=== PATIENT | male | born 1995 | race Caucasian/White ===

== ENCOUNTER 2017-06-01 07:38 | Emergency (ER) | payer SELFPAY ==
[2017-06-01 07:55] VITALS: BP 130/71
--- NOTE | 2017-06-01 08:21 | DR.ABDMALE ---
HPI - Time seen Time seen: 08:20 - PCP Primary Care Physician: CHOLO - HPI comment HPI Comment: NO FEVER. HAVE RASH RT GROIN AREA, SUPRAPUBIC AREA AND LEFT MIDDLE FINGER. BOBBY INFECTED FOR SEVERAL DAYS. NO DRAINAGE. NAUSEATED BUT NOT VOMITING. - Complaint Chief Complaint Doctors Comments: ABDOMINAL PAIN, DIARRHEA FOR FEW DAYS. EXPOSE TO STD. Chief Complaint:: PT STATES " I WAS TOLD BY A GIRL THAT I NEED TO BE CHECKED AND I WAS EMBARESSED ".. I HAVE BEEN SICK NOT KEEPING ANYTHING DOWN, AND MY ORGANS HURT.... Self Treatment fo Chief Complaint: PT CALLED THE HEALTH DEPT AND HE CANT BE SEEN FOR 3 WEEKS ,, PT C/O INFECTION TO HIS RIGHT INDEX FINGER.. - Reviewed Nurses Notes Review: Yes - Mode of arrival Mode of Arrival: Ambulatory - Timing Onset of Chief Complaint: 06/01/17 Came on: Suddenly - Duration Duration: Constant Duration: Days - Location Location: Diffuse - Severity Severity: Moderate - Quality Quality: Cramping - Context Onset: Suddenly History of: None - Modifying factors Worsening Factors: Nothing - Associated signs and symptoms Associated Signs and Symptoms: Nausea, Diarrhea PMH - PMH Past Medical History: No Past Surgical History: No - Family History History of Family Medical Conditions: No Family Medical History: Diabetes Mellitus, Hypertension - Social History Does patient currently use any type of tobacco product: No Have you used tobacco products in the last 12 months: No Type of Tobacco Use: None Does any household member use tobacco: No Alcohol Use: None Do you use any recreational Drugs:: Yes (THC) Lives With: Family Lives Where: Home - infectious screening In the last 2 months have you had wt loss of >10#?: NO Have you had fever, night sweats or hemotysis?: No Have you traveled outside the country in the last 6 months?: No Isolation: Standard ROS - Review of Systems Constitutional: Weakness, Fatigue, Loss of Appetite. negative: Chills, Fever Eyes: negative: Eye Pain, Discharge ENTM: negative: Ear Pain, Nose Discharge, Nose Congestion, Throat Pain Respiratoy: No Symptoms Reported. negative: Productive Cough, Non-Productive Cough, Short of Breath, Wheezing, Hemoptysis Cardiovascular: No Symptoms Reported. negative: Chest Pain Gastrointestinal/Abdominal: Abdominal Pain, Diarrhea, Nausea. negative: Vomiting Genitourinary: No Symptoms Reported. negative: Dysuria, Frequency, Hematuria Neurological: Weakness, Dizziness. negative: Headache Musculoskeletal: Muscle Pain Integumentary: Lesions (lt middle finger infection), Rash (lower abdomen and rt groin area.) Hematologic/Lymphatic: No Symptoms Reported Endocrine: No Symptoms Reported All Other Systems: Reviewed and Negative PE - Vital Signs Vital Signs: Temp Pulse Resp BP Pulse Ox 06/01/17 07:48 97.5 F L 107 H 18 130/71 97 12/18/14 15:38 112/67 - General Limitations: No Limitations General Appearance: Alert - Head Head Exam: Normal Inspection - Eyes Eye exam: Normal Appearance - ENT ENT Exam: Normal External Ear Exam - Chest Chest Inspection: Symmetric Chest Wall Rise - Respiratory Respiratory Exam: Normal Lung Sounds Bilat Respiratory Exam: Bilateral Clear to Auscultation - Cardiovascular Cardiovascular Exam: Regular Rate, Normal Rhythm, Normal Heart Sounds - Abdominal Exam Abdominal Exam: Normal Bowel Sounds, Soft, Tenderness Abdominal Tenderness: Diffuse, Moderate - Rectal Rectal Exam: Deferred - Back Back Exam: Normal Inspection - Extremeties Extremities Exam: Normal Inspection - Exam: Male: negative: Testicular Tenderness, Urethral Discharge, Scrotal Swelling, Phimosis, Paraphimosis, Penile Swelling, Lesions - Neurologic Neurological Exam: Alert, Oriented X3 - Psychiatric Psychiatric Exam: Normal Affect, Normal Mood - Skin Skin Exam: Rash, Erythema (lt middle finger infection. no drainage.) MDM - Differential Diagnosis Differential Diagnosis: Gastritus/PUD (STD EXPOSURE.), Gastroenteritis, Pancreatitis, Urinary tract infection, Urolithiasis Course - Treatment Treatment: SEE ORDERS. - Education/Counseling Education/Counseling: Patient, Education Educated On: Diagnosis, Needs for Follow Up ROR - Labs Reviewed Laboratory Results Reviewed?: Yes Result Diagrams: 06/01/17 08:35 06/01/17 08:35 Laboratory: WBC 8.6 X10^3/uL (3.6-10.0) 06/01/17 08:35 RBC 5.71 X10^6/uL (4.7-6.0) 06/01/17 08:35 Hgb 17.6 g/dL (13.5-18.0) 06/01/17 08:35 Hct 49.9 % (42.0-54.0) 06/01/17 08:35 MCV 87.5 fL (80.0-100.0) 06/01/17 08:35 MCH 30.9 pg (27.0-34.0) 06/01/17 08:35 MCHC 35.4 g/dL (33.0-35.0) H 06/01/17 08:35 RDW 13.1 % (11.6-16.5) 06/01/17 08:35 Plt Count 385 X10^3/uL (150.0-450.0) 06/01/17 08:35 Plt Count Comment Adequate (ADEQUATE) 06/01/17 08:35 MPV 8.0 fL (7.4-11.0) 06/01/17 08:35 Neut % 57.9 % (42.0-75.0) 06/01/17 08:35 Lymph % 30.8 % (21.0-51.0) 06/01/17 08:35 [place] % 9.3 % (0.0-13.0) 06/01/17 08:35 Eos % 1.2 % (0.9-2.9) 06/01/17 08:35 Baso % 0.8 % (0.2-1.0) 06/01/17 08:35 Neut # 5.0 x10^3/uL (2.2-4.8) H 06/01/17 08:35 Lymph # 2.6 X10^3/uL (1.3-2.9) 06/01/17 08:35 [place] # 0.8 x10^3/uL (0.3-0.8) 06/01/17 08:35 Eos # 0.1 x10^3/uL (0.0-0.2) 06/01/17 08:35 Baso # 0.1 X10^3/uL (0.0-0.1) 06/01/17 08:35 Absolute Nucleated RBC 0.0 /100WBC 06/01/17 08:35 Plt Morphology Comment Normal (NORMAL) 06/01/17 08:35 RBC Morphology Normal (NORMAL) 06/01/17 08:35 Sodium 140 mmol/L (136-145) 06/01/17 08:35 Corrected Sodium TNP 06/01/17 08:35 Potassium 3.1 mmol/L (3.5-5.1) L 06/01/17 08:35 Chloride 100 mmol/L (98-107) 06/01/17 08:35 Carbon Dioxide 29.7 mmol/L (21-32) 06/01/17 08:35 BUN 17 mg/dL (7-18) 06/01/17 08:35 Creatinine 1.31 mg/dL (0.70-1.30) H 06/01/17 08:35 Est GFR (MDRD) Af Amer > 60 (>60) 06/01/17 08:35 Est GFR (MDRD) Non-Af > 60 (>60) 06/01/17 08:35 Glucose 77 mg/dL (65-99) 06/01/17 08:35 Calcium 9.5 mg/dL (8.5-10.1) 06/01/17 08:35 Corrected Calcium TNP 06/01/17 08:35 Total Bilirubin 0.70 mg/dL (0.2-1.0) 06/01/17 08:35 AST 16 Units/L (15-37) 06/01/17 08:35 ALT 19 Units/L (12-78) 06/01/17 08:35 Alkaline Phosphatase 68 Units/L (46-116) 06/01/17 08:35 Total Protein 9.2 g/dL (6.4-8.2) H 06/01/17 08:35 Albumin 4.9 g/dL (3.4-5.0) 06/01/17 08:35 Globulin 4.3 g/dL (2.5-4.5) 06/01/17 08:35 Albumin/Globulin Ratio 1.1 Ratio (1.1-2.1) 06/01/17 08:35 Amylase 74 Units/L (25-115) 06/01/17 08:35 Lipase 242 Units/L (73-393) 06/01/17 08:35 Specimen Type Clean catch urine 06/01/17 09:11 Urine Color Yellow (YELLOW) 06/01/17 09:11 Urine Appearance Clear (CLEAR) 06/01/17 09:11 Urine pH 6.0 (5.0 - 8.0) 06/01/17 09:11 Ur Specific [place] 1.020 (1.000-1.030) 06/01/17 09:11 Urine Protein 2+ (NEGATIVE) 06/01/17 09:11 Urine Glucose (UA) Negative (NEGATIVE) 06/01/17 09:11 Urine Ketones 1+ (NEGATIVE) 06/01/17 09:11 Urine Occult Blood 3+ (NEGATIVE) 06/01/17 09:11 Urine Nitrite Negative (NEGATIVE) 06/01/17 09:11 Urine Bilirubin 1+ (NEGATIVE) 06/01/17 09:11 Urine Urobilinogen 2+ (NORMAL) 06/01/17 09:11 Ur Leukocyte Esterase 2+ (NEGATIVE) 06/01/17 09:11 Urine RBC Cancelled 06/01/17 09:11 Urine WBC Cancelled 06/01/17 09:11 Ur Squamous Epith Cells Cancelled 06/01/17 09:11 Ur Transition Epith Cell Cancelled 06/01/17 09:11 Ur Renal Epithelial Cell Cancelled 06/01/17 09:11 Calcium Oxalate Crystal Cancelled 06/01/17 09:11 Cystine Crystals Cancelled 06/01/17 09:11 Uric Acid Crystals Cancelled 06/01/17 09:11 Triple Phos Crystals Cancelled 06/01/17 09:11 Tyrosine Crystals Cancelled 06/01/17 09:11 Other Crystals Cancelled 06/01/17 09:11 Amorphous Sediment Cancelled 06/01/17 09:11 Urine Bacteria Cancelled 06/01/17 09:11 Hyaline Casts Cancelled 06/01/17 09:11 Granular Casts Cancelled 06/01/17 09:11 Fine Granular Casts Cancelled 06/01/17 09:11 Coarse Granular Casts Cancelled 06/01/17 09:11 WBC Casts Cancelled 06/01/17 09:11 Other Casts Cancelled 06/01/17 09:11 Urine Mucus Cancelled 06/01/17 09:11 Urine Trichomonas Cancelled 06/01/17 09:11 Urine Yeast Cancelled 06/01/17 09:11 Urine Sperm Cancelled 06/01/17 09:11 Ur Culture Indicated? Cancelled 06/01/17 09:11 Urinalysis Comment Dip only ordered 06/01/17 09:11 Ur C. trach DNA (PCR) Detected (NOT DETECT) A 06/01/17 08:30 U N.gonorrhoeae DNA PCR Not detected (NOT DETECT) 06/01/17 08:30 - XRAY XRAY Interpreted by: Radiologist (REPORT DISCUSS WITH PATIENT.) - Diagnosis Discharge Problem: STD exposure, Finger infection Abdominal pain Qualifiers: Abdominal location: generalized Qualified Code(s): R10.84 - Generalized abdominal pain - Discharge Plan Disposition: 01 HOME, SELF-CARE Condition: Stable Prescriptions: Diphenoxylate/Atropine [Lomotil] 1 tab PO TID PRN #15 tab PRN Reason: Doxycycline Hyclate 100 mg PO BID #20 tablet. Metronidazole [Flagyl Tab 500 mg] 500 mg PO TID #21 tab - Follow ups/Referrals Follow ups/Referrals: [facility],None [Primary Care Provider] - 3 days - Instructions Instructions: Viral Gastroenteritis, Adult, [id number], Abdominal Pain, Adult , [id number], Chlamydia Test Additional Instructions: RETURN TO ED
[2017-06-01 08:49] LABS: BASOPHILS # (AUTO) 0.1 X10^3/uL (0.0-0.1); BASOPHILS % (AUTO) 0.8 % (0.2-1.0); EOSINOPHILS # (AUTO) 0.1 x10^3/uL (0.0-0.2); EOSINOPHILS % (AUTO) 1.2 % (0.9-2.9); HEMATOCRIT 49.9 % (42.0-54.0); HEMOGLOBIN 17.6 g/dL (13.5-18.0); LYMPHOCYTES # (AUTO) 2.6 X10^3/uL (1.3-2.9); LYMPHOCYTES % (AUTO) 30.8 % (21.0-51.0); MEAN CORPUSCULAR HEMOGLOBIN 30.9 pg (27.0-34.0); MEAN CORPUSCULAR HGB CONC 35.4 g/dL (33.0-35.0); MEAN CORPUSCULAR VOLUME 87.5 fL (80.0-100.0); MONOCYTES # (AUTO) 0.8 x10^3/uL (0.3-0.8); MONOCYTES % (AUTO) 9.3 % (0.0-13.0); NEUTROPHILS % (AUTO) 57.9 % (42.0-75.0); PLATELET COUNT 385 X10^3/uL (150.0-450.0); RED BLOOD COUNT 5.71 X10^6/uL (4.7-6.0); RED CELL DISTRIBUTION WIDTH 13.1 % (11.6-16.5); WHITE BLOOD COUNT 8.6 X10^3/uL (3.6-10.0)
[2017-06-01 08:57] LABS: ALANINE AMINOTRANSFERASE 19 Units/L (12-78); ALBUMIN 4.9 g/dL (3.4-5.0); ALKALINE PHOSPHATASE 68 Units/L (46-116); AMYLASE 74 Units/L (25-115); ASPARTATE AMINO TRANSFERASE 16 Units/L (15-37); BLOOD UREA NITROGEN 17 mg/dL (7-18); CALCIUM 9.5 mg/dL (8.5-10.1); CARBON DIOXIDE 29.7 mmol/L (21-32); CHLORIDE 100 mmol/L (98-107); CREATININE 1.31 mg/dL (0.70-1.30); LIPASE 242 Units/L (73-393); SODIUM 140 mmol/L (136-145); TOTAL PROTEIN 9.2 g/dL (6.4-8.2); eGFR BLACK RACES > 60 (>60); eGFR NON BLACK RACES > 60 (>60)
[2017-06-01 09:00] LABS: PLATELET MORPHOLOGY COMMENT NORMAL (NORMAL)
[2017-06-01 09:52] LABS: BILIRUBIN,URINE 1+ (NEGATIVE); BLOOD/HEMOGLOBIN,URINE 3+ (NEGATIVE); GLUCOSE, URINE NEGATIVE (NEGATIVE); KETONES,URINE 1+ (NEGATIVE); LEUKOCYTE ESTERASE ,URINE 2+ (NEGATIVE); NITRITES,URINE NEGATIVE (NEGATIVE); PROTEIN,URINE 2+ (NEGATIVE); UROBILINOGEN,URINE 2+ (NORMAL)
[2017-06-01 09:56] LABS: APPEARANCE,URINE CLEAR (CLEAR); COLOR,URINE YELLOW (YELLOW)
--- NOTE | 2017-06-01 10:18 | RAD ---
HISTORY: Abdominal pain Study: Acute abdominal series Comparison: None Findings: The trachea is midline. The cardiac silhouette is unremarkable. The lungs are clear without focal i nfiltrate or effusion. The bony thorax is unremarkable. Flat plate and upright evaluation of the abdomen demonstrates a normal bowel gas pattern. No pneumope ritoneum is identified.. No pathological soft tissue mass or calcification can be observed. The bon y structures are grossly intact. IMPRESSION: 1. No acute cardiopulmonary disease. 2. No evidence for acute abdominal pathology identified. Reported By:
[2017-06-01 10:34] LABS: CHLAMYDIA TRACH URINE DETECTED (NOT DETECT)
[2017-06-01] MEDS ORDERED: POTASSIUM CHLORIDE LIQ 20 MEQ UDC PO ONE (10:44)
[2017-06-01] MEDS ORDERED: ROCEPHIN VIAL 250 MG IM ONE (10:44)
[2017-06-01] MEDS ORDERED: POTASSIUM CHLORIDE LIQ 20 MEQ UDC ONE (10:48)
[2017-06-01] MEDS ORDERED: ROCEPHIN VIAL 250 MG ONE (10:48)
== END 2017-06-01 11:00 | disposition home or self-care (01) ==
LOC: ER 08:01
DX: L08.89 Other specified local infections of the skin and subcutaneous tissue (principal); Z20.2 Contact with and (suspected) exposure to infections with a predominantly sexual mode of transmission; R10.84 Generalized abdominal pain
CPT/HCPCS: 36415; 74022; 80053; 81003; 82150; 83690; 85025; 87491; 87591; 96372; 99282; 99283; J0696